=== PATIENT | male | born 1990 | race Caucasian/White ===

== ENCOUNTER 2016-06-08 23:14 | Emergency (ER) | payer BC ==
[2016-06-08] MEDS ORDERED: OPTIRAY 350 100 ML VIAL HMH IV ONE (23:15)
[2016-06-09] MEDS ORDERED: ASPIRIN 81 MG CHEW TAB ONE (00:03)
[2016-06-09] MEDS ORDERED: KETOROLAC 30 MG/ML VIAL ONE (02:28)
== END 2016-06-09 03:43 | disposition home or self-care (01) ==
LOC: ER 23:14
DX: R07.9 Chest pain, unspecified (principal); I10 Essential (primary) hypertension
CPT/HCPCS: 36415; 71010; 71275; 74175; 80053; 80307; 82550; 83735; 84439; 84443; 84484; 85025; 85610; 85730; 93005; 96374